=== PATIENT | male | born 1970 | race Caucasian/White ===

== ENCOUNTER 2016-10-23 18:08 | Observation (INO) | payer SELFPAY ==
[~2016-10-23] VITALS: Ht 182.9 cm; Wt 93.2 kg
[2016-10-23 18:12] VITALS: BP 114/61; PULSE 62; RESP 16; TEMP 98.7; O2SAT 96
[2016-10-23] MEDS ORDERED: SODIUM CHLOR 0.9% 1000 ML INJ 1,000 ML IV ONE (18:33)
--- NOTE | 2016-10-23 18:39 | PD ---
HPI Chief Complaint: Syncope/Near-Syncope Time Seen by Provider: 18:23 Travel History International Travel<30 days: No Contact w/Intl Traveler<30days: No Traveled to known affect area: No History of Present Illness HPI The patient is a 46-year-old male who presents emergency department for syncope. The patient states he was smoking a cigarette earlier today when he 7 became dizzy, he felt like he had blurry vision and subsequently had a syncopal episode. The patient thinks he lost consciousness for approximately 30 seconds. He does complain of abrasions to the nose, chin, and a laceration above the left eye. He also complains of abrasions to the extensor surface of the knees and hands bilaterally. The patient denies any history of syncope prior to the event. He denies any acute chest pain, shortness breath, palpitations, but does complain of mild nausea without any vomiting. The patient denies any history of arrhythmias or history of aortic stenosis. Symptoms are moderate, no known alleviating or exacerbating factors. The patient denies any chronic medical problems. [facility] Past Medical History Medical History: Denies Significant Hx Hx Anticoagulant Therapy: No Diabetes: No Past Surgical History Surgical History: No Previous Surgery Social History Tobacco Use: Yes Allergies-Medications (Allergen,Severity, Reaction): Coded Allergies: No Known Allergies (Unverified , 10/23/16) Reported Meds & Prescriptions Reported Meds & Active Scripts Active No Active Prescriptions or Reported Medications Review of Systems Except as stated in HPI: all other systems reviewed are Neg HENT: Positive: Lightheadedness Cardiovascular: Positive: Syncope, No: Chest Pain or Discomfort, Palpitations , Irregular Rhythm, Tachycardia, Diaphoresis Respiratory: No: Shortness of Breath Gastrointestinal: Positive: Nausea, No: Vomiting Musculoskeletal: No: Weakness Neurologic: Positive: Syncope, Headache, No: Change in Mentation, Paresthesia , Sensory Disturbance Physical Exam Narrative GENERAL: Awake, alert, pleasant 46-year-old male who appears his stated age and is in no acute respiratory distress. SKIN: Abrasions to the knees bilaterally as well as extensor surface of the hands bilaterally. Abrasions noted to the nose, upper lip, and chin. 2 cm laceration transverse, within the left eyebrow. HEAD: Abrasions to the face and forehead noted.. EYES: Pupils equal and round. Pupils are 3 mm bilateral and reactive. EOMs are intact. ENT: No nasal bleeding or discharge. Dry blood in the posterior pharynx. NECK: Trachea midline. No JVD. No tenderness of the cervical vertebrae. CARDIOVASCULAR: Regular rate and rhythm. No murmur appreciated. RESPIRATORY: No accessory muscle use. Clear to auscultation. Breath sounds equal bilaterally. GASTROINTESTINAL: Abdomen soft, non-tender, nondistended. No rebound tenderness. Back: No tenderness over the thoracic or lumbar vertebrae. MUSCULOSKELETAL: No obvious deformities. No clubbing. No cyanosis. No edema. NEUROLOGICAL: Awake and alert. No obvious cranial nerve deficits. Motor grossly within normal limits. Normal speech. PSYCHIATRIC: Appropriate mood and affect; insight and judgment normal. Data Data Last Documented VS Vital Signs Date Time Temp Pulse Resp B/P Pulse Ox O2 Delivery O2 Flow Rate FiO2 10/23/16 19:49 66 16 108/61 70 16 112/69 79 16 117/70 10/23/16 19:30 98 10/23/16 19:06 Room Air 10/23/16 18:12 98.7 Orders Electrocardiogram (10/23/16 18:33) Complete Blood Count With Diff (10/23/16 18:33) Comprehensive Metabolic Panel (10/23/16 18:33) Magnesium (Mg) (10/23/16 18:33) Ckmb (Isoenzyme) Profile (10/23/16 18:33) Troponin I (10/23/16 18:33) Chest, Single Ap (10/23/16 18:33) Ct Brain W/O Iv Contrast(Rout) (10/23/16 18:33) Ct Cerv Spine W/O Contrast (10/23/16 18:33) Ecg Monitoring (10/23/16 18:33) Iv Access Insert/Monitor (10/23/16 18:33) Oximetry (10/23/16 18:33) Sodium Chloride 0.9% Flush (Ns Flush) (10/23/16 18:45) Sodium Chlor 0.9% 1000 Ml Inj (Ns 1000 M (10/23/16 18:33) Orthostatic Vital Signs (10/23/16 18:33) Ct Facial Bones W/O Iv Cont (10/23/16 ) Tetanus/Diphtheria Tox Adult (Tetanus/Di (10/23/16 18:45) Wound Care (10/23/16 18:33) CKMB (10/23/16 18:45) CKMB% (10/23/16 18:45) Lidocai-Epi 1%-1:100,000 Inj (Xylocaine- (10/23/16 19:30) Admit Order (Ed Use Only) (10/23/16 20:28) Labs Laboratory Tests Test 10/23/16 18:45 White Blood Count 15.6 TH/MM3 Red Blood Count 5.50 MIL/MM3 Hemoglobin 16.4 GM/DL Hematocrit 48.3 % Mean Corpuscular Volume 87.8 FL Mean Corpuscular Hemoglobin 29.8 PG Mean Corpuscular Hemoglobin 33.9 % Concent Red Cell Distribution Width 12.6 % Platelet Count 227 TH/MM3 Mean Platelet Volume 8.0 FL Neutrophils (%) (Auto) 84.0 % Lymphocytes (%) (Auto) 7.3 % Monocytes (%) (Auto) 5.0 % Eosinophils (%) (Auto) 0.2 % Basophils (%) (Auto) 3.5 % Neutrophils # (Auto) 13.2 TH/MM3 Lymphocytes # (Auto) 1.1 TH/MM3 Monocytes # (Auto) 0.8 TH/MM3 Eosinophils # (Auto) 0.0 TH/MM3 Basophils # (Auto) 0.5 TH/MM3 CBC Comment DIFF FINAL Differential Comment Sodium Level 140 MEQ/L Potassium Level 3.8 MEQ/L Chloride Level 103 MEQ/L Carbon Dioxide Level 28.7 MEQ/L Anion Gap 8 MEQ/L Blood Urea Nitrogen 22 MG/DL Creatinine 1.30 MG/DL Estimat Glomerular Filtration 60 ML/MIN Rate Random Glucose 140 MG/DL Calcium Level 8.9 MG/DL Magnesium Level 2.2 MG/DL Total Bilirubin 0.4 MG/DL Aspartate Amino Transf 13 U/L (AST/SGOT) Alanine Aminotransferase 21 U/L (ALT/SGPT) Alkaline Phosphatase 68 U/L Total Creatine Kinase 195 U/L Creatine Kinase MB 4.7 NG/ML Troponin I LESS THAN 0.02 NG/ML Total Protein 7.6 GM/DL Albumin 4.1 GM/DL MDM Medical Decision Making Medical Screen Exam Complete: Yes Emergency Medical Condition: Yes Medical Record Reviewed: Yes Interpretation(s) EKG reveals sinus bradycardia with a rate of 59. No evidence of WPW or Brugada syndrome. Last Impressions Chest X-Ray 10/23/161832 Signed Impressions: Service Date/Time: Sunday, October 23, 2016 18:36 - CONCLUSION: No acute disease. Js Rust MD Laboratory Tests Test 10/23/16 18:45 White Blood Count 15.6 TH/MM3 Red Blood Count 5.50 MIL/MM3 Hemoglobin 16.4 GM/DL Hematocrit 48.3 % Mean Corpuscular Volume 87.8 FL Mean Corpuscular Hemoglobin 29.8 PG Mean Corpuscular Hemoglobin 33.9 % Concent Red Cell Distribution Width 12.6 % Platelet Count 227 TH/MM3 Mean Platelet Volume 8.0 FL Neutrophils (%) (Auto) 84.0 % Lymphocytes (%) (Auto) 7.3 % Monocytes (%) (Auto) 5.0 % Eosinophils (%) (Auto) 0.2 % Basophils (%) (Auto) 3.5 % Neutrophils # (Auto) 13.2 TH/MM3 Lymphocytes # (Auto) 1.1 TH/MM3 Monocytes # (Auto) 0.8 TH/MM3 Eosinophils # (Auto) 0.0 TH/MM3 Basophils # (Auto) 0.5 TH/MM3 CBC Comment DIFF FINAL Differential Comment Sodium Level 140 MEQ/L Potassium Level 3.8 MEQ/L Chloride Level 103 MEQ/L Carbon Dioxide Level 28.7 MEQ/L Anion Gap 8 MEQ/L Blood Urea Nitrogen 22 MG/DL Creatinine 1.30 MG/DL Estimat Glomerular Filtration 60 ML/MIN Rate Random Glucose 140 MG/DL Calcium Level 8.9 MG/DL Magnesium Level 2.2 MG/DL Total Bilirubin 0.4 MG/DL Aspartate Amino Transf 13 U/L (AST/SGOT) Alanine Aminotransferase 21 U/L (ALT/SGPT) Alkaline Phosphatase 68 U/L Total Creatine Kinase 195 U/L Creatine Kinase MB 4.7 NG/ML Troponin I LESS THAN 0.02 NG/ML Total Protein 7.6 GM/DL Albumin 4.1 GM/DL Last Impressions Head CT 10/23/161832 Signed Impressions: Service Date/Time: Sunday, October 23, 2016 19:07 - CONCLUSION: 1. No acute intracranial abnormalities. Left frontal scalp laceration. Js Rust MD Chest X-Ray 10/23/161832 Signed Impressions: Service Date/Time: Sunday, October 23, 2016 18:36 - CONCLUSION: No acute disease. Js Rust MD Cervical Spine CT 10/23/16 1833 Signed Impressions: Service Date/Time: Sunday, October 23, 2016 19:07 - CONCLUSION: Normal examination. Js Rust MD Maxillofacial CT 10/23/16 0000 Signed Impressions: Service Date/Time: Sunday, October 23, 2016 19:07 - CONCLUSION: 1. No facial bone fractures. Left frontal scalp laceration. Js Rust MD Differential Diagnosis Differential diagnosis includes syncope, aortic stenosis, vasovagal syncope, neurocardiogenic syncope, arrhythmia, intracranial hemorrhage, pulmonary embolism, which led abnormality. Narrative Course IV was established, labs are drawn and sent, and the patient was placed on cardiac telemetry monitoring and continuous pulse oximetry monitoring. EKG was ordered and interpreted. CT the brain, cervical spine, and facial bones was ordered. The patient was administered IV fluids and orthostatic vital signs were obtained. Orthostatic vital signs were obtained, they were unremarkable, however, the patient did have dizziness with sitting upright and standing. CT the brain was negative. Laboratory evaluation is unremarkable. EKG revealed sinus bradycardia but no evidence of WPW or Brugada syndrome. However, patient has obvious syncopal episode with injuries, abrasion injuries to the face, hands , knees. Therefore, patient will be 23 hour observation for telemetry monitoring and echocardiogram. The patient does not currently have a primary physician, therefore, the on-call medical service was paged for 23 hour observation. The patient's laceration was repaired by the physician assistant men's soccer coach, Donnie Myles PA-C. Please refer to the procedure note. CT the brain, facial bones, cervical spine is negative for fracture, does reveal left frontal scalp laceration. The patient will be 23 hour observation. Physician Communication Physician Communication [facility] were paged for 23 hour observation. I discussed the patient with Dr. Shields who agrees with 23 hour observation. Diagnosis Primary Impression: Syncope Qualified Code: R55 - Syncope, unspecified syncope type Additional Impression: Laceration of face Qualified Code: S01.81XA - Laceration of face, initial encounter Admitting Information Admitting Physician Requests: Observation Scripts No Active Prescriptions or Reported Meds Condition: Stable Albaro Aranda MD Oct 23, 2016 18:39
[2016-10-23] MEDS ORDERED: SODIUM CHLORIDE 0.9% FLUSH 5 ML FLUSH IVF PRN (18:45)
[2016-10-23] MEDS ORDERED: TETANUS/DIPHTHERIA TOXOID ADULT 0.5 ML VIAL IM ONE (18:45)
[2016-10-23 19:02] LABS: AUTOMATED NEUTROPHIL # 13.2 TH/MM3 (1.8-7.7); BASOPHIL # 0.5 TH/MM3 (0-0.2); BASOPHIL % 3.5 % (0.0-2.0); EOSINOPHIL % 0.2 % (0.0-4.0); HEMATOCRIT 48.3 % (39.0-51.0); HEMO FLAGS DIFF FINAL; LYMPH % 7.3 % (9.0-44.0); LYMPHOCYTE # 1.1 TH/MM3 (1.0-4.8); MEAN CELL VOLUME 87.8 FL (80.0-100.0); MEAN CORPUSCULAR HEMOGLOBIN 29.8 PG (27.0-34.0); MEAN CORPUSCULAR HGB CONC 33.9 % (32.0-36.0); PLATELET COUNT 227 TH/MM3 (150-450); RED CELL DISTRIBUTION WIDTH 12.6 % (11.6-17.2); WHITE BLOOD COUNT 15.6 TH/MM3 (4.0-11.0)
--- NOTE | 2016-10-23 19:04 | RADHPO ---
EXAM DATE/TIME: 10/23/2016 18:36 [facility] COMPARISON: No previous studies available for comparison. INDICATIONS : Syncopal episode. Palpitaions. MEDICAL HISTORY : None. SURGICAL HISTORY : None. ENCOUNTER: Initial ACUITY: 1 day PAIN SCORE: 0/10 LOCATION: Bilateral chest FINDINGS: A single view of the chest demonstrates the lungs to be symmetrically aerated without evidence of mas s, infiltrate or effusion. The cardiomediastinal contours are unremarkable. Osseous structures are intact. CONCLUSION: No acute disease. Js Rust MD on October 23, 2016 at 19:03 Board Certified Radiologist. This report was verified electronically.
[2016-10-23 19:06] VITALS: BP 114/50; PULSE 87; RESP 16; O2SAT 99
[2016-10-23 19:09] LABS: CHLORIDE 103 MEQ/L (98-107); POTASSIUM 3.8 MEQ/L (3.5-5.1); SODIUM (NA) 140 MEQ/L (136-145)
[2016-10-23 19:13] LABS: ANION GAP 8 MEQ/L (5-15); BICARBONATE 28.7 MEQ/L (21.0-32.0); MAGNESIUM 2.2 MG/DL (1.5-2.5)
[2016-10-23 19:14] LABS: BLOOD UREA NITROGEN 22 MG/DL (7-18)
[2016-10-23 19:16] LABS: ALT (GPT) 21 U/L (12-78)
[2016-10-23 19:17] LABS: AST (GOT) 13 U/L (15-37); GLOMERULAR FILTRATION RATE 60 ML/MIN (>89)
[2016-10-23 19:18] LABS: TOTAL BILIRUBIN ADULT 0.4 MG/DL (0.2-1.0)
[2016-10-23 19:19] LABS: ALKALINE PHOSPHATASE 68 U/L (45-117); CREATINE KINASE 195 U/L (39-308)
[2016-10-23 19:30] VITALS: BP 119/66; PULSE 72; RESP 16; O2SAT 98
[2016-10-23] MEDS ORDERED: LIDOCAINE 1%/EPINEPHrine 1:100,000 SOLN 20 ML VIAL INFIL ONE (19:30)
[2016-10-23 19:31] LABS: CKMB 4.7 NG/ML (0.5-3.6)
--- NOTE | 2016-10-23 19:35 | RADHPO ---
EXAM DATE/TIME: 10/23/2016 19:07 [facility] COMPARISON: No previous studies available for comparison. INDICATIONS : Syncopal episode with loss of consciousness. Left frontal head trauma. RADIATION DOSE: 63.26 CTDIvol (mGy) MEDICAL HISTORY : None SURGICAL HISTORY : None. ENCOUNTER: Initial ACUITY: 1 day PAIN SCALE: 7/10 LOCATION: Left frontal TECHNIQUE: Multiple contiguous axial images were obtained of the head. Using automated exposure control and adj ustment of the mA and/or kV according to patient size, radiation dose was kept as low as reasonably a chievable to obtain optimal diagnostic quality images. FINDINGS: CEREBRUM: The ventricles are normal for age. No evidence of midline shift, mass lesion, hemorrhage or acute in farction. No extra-axial fluid collections are seen. POSTERIOR FOSSA: The cerebellum and brainstem are intact. The 4th ventricle is midline. The cerebellopontine angle i s unremarkable. EXTRACRANIAL: The visualized portion of the orbits is intact. SKULL: The calvaria is intact. No evidence of skull fracture. CONCLUSION: 1. No acute intracranial abnormalities. Left frontal scalp laceration. Js Rust MD on October 23, 2016 at 19:32 Board Certified Radiologist. This report was verified electronically.
[2016-10-23 19:49] VITALS: BP_SYST 108; BP_SYST 112; BP_SYST 117; BP_DIAS 61; BP_DIAS 69; BP_DIAS 70; RESP 16
--- NOTE | 2016-10-23 19:52 | PD ---
Physical Exam Date Seen by Provider: Oct 23, 2016 Time Seen by Provider: 19:51 Narrative 46-year-old male that presents to the ED for evaluation of laceration to the left forehead. I was also my attending to repair laceration. Please refer to his note. Data Data Last Documented VS Vital Signs Date Time Temp Pulse Resp B/P Pulse Ox O2 Delivery O2 Flow Rate FiO2 10/23/16 19:49 66 16 108/61 70 16 112/69 79 16 117/70 10/23/16 19:30 98 10/23/16 19:06 Room Air 10/23/16 18:12 98.7 Orders Electrocardiogram (10/23/16 18:33) Complete Blood Count With Diff (10/23/16 18:33) Comprehensive Metabolic Panel (10/23/16 18:33) Magnesium (Mg) (10/23/16 18:33) Ckmb (Isoenzyme) Profile (10/23/16 18:33) Troponin I (10/23/16 18:33) Chest, Single Ap (10/23/16 18:33) Ct Brain W/O Iv Contrast(Rout) (10/23/16 18:33) Ct Cerv Spine W/O Contrast (10/23/16 18:33) Ecg Monitoring (10/23/16 18:33) Iv Access Insert/Monitor (10/23/16 18:33) Oximetry (10/23/16 18:33) Sodium Chloride 0.9% Flush (Ns Flush) (10/23/16 18:45) Sodium Chlor 0.9% 1000 Ml Inj (Ns 1000 M (10/23/16 18:33) Orthostatic Vital Signs (10/23/16 18:33) Ct Facial Bones W/O Iv Cont (10/23/16 ) Tetanus/Diphtheria Tox Adult (Tetanus/Di (10/23/16 18:45) Wound Care (10/23/16 18:33) CKMB (10/23/16 18:45) CKMB% (10/23/16 18:45) Lidocai-Epi 1%-1:100,000 Inj (Xylocaine- (10/23/16 19:30) Labs Laboratory Tests Test 10/23/16 18:45 White Blood Count 15.6 TH/MM3 Red Blood Count 5.50 MIL/MM3 Hemoglobin 16.4 GM/DL Hematocrit 48.3 % Mean Corpuscular Volume 87.8 FL Mean Corpuscular Hemoglobin 29.8 PG Mean Corpuscular Hemoglobin 33.9 % Concent Red Cell Distribution Width 12.6 % Platelet Count 227 TH/MM3 Mean Platelet Volume 8.0 FL Neutrophils (%) (Auto) 84.0 % Lymphocytes (%) (Auto) 7.3 % Monocytes (%) (Auto) 5.0 % Eosinophils (%) (Auto) 0.2 % Basophils (%) (Auto) 3.5 % Neutrophils # (Auto) 13.2 TH/MM3 Lymphocytes # (Auto) 1.1 TH/MM3 Monocytes # (Auto) 0.8 TH/MM3 Eosinophils # (Auto) 0.0 TH/MM3 Basophils # (Auto) 0.5 TH/MM3 CBC Comment DIFF FINAL Differential Comment Sodium Level 140 MEQ/L Potassium Level 3.8 MEQ/L Chloride Level 103 MEQ/L Carbon Dioxide Level 28.7 MEQ/L Anion Gap 8 MEQ/L Blood Urea Nitrogen 22 MG/DL Creatinine 1.30 MG/DL Estimat Glomerular Filtration 60 ML/MIN Rate Random Glucose 140 MG/DL Calcium Level 8.9 MG/DL Magnesium Level 2.2 MG/DL Total Bilirubin 0.4 MG/DL Aspartate Amino Transf 13 U/L (AST/SGOT) Alanine Aminotransferase 21 U/L (ALT/SGPT) Alkaline Phosphatase 68 U/L Total Creatine Kinase 195 U/L Creatine Kinase MB 4.7 NG/ML Troponin I LESS THAN 0.02 NG/ML Total Protein 7.6 GM/DL Albumin 4.1 GM/DL [facility] Medical Record Reviewed: Yes Supervised Visit with NESTOR: No Procedures Procedure Narrative LACERATION LOCATION: Left eyebrow LENGTH: 1.5 cm NUMBER OF STITCHES/HOSSEIN: 5 sutures REPAIR: The area of the laceration was prepped with Betadine and sterilely draped. The laceration was infiltrated with 1% Xylocaine. The wound was copiously irrigated and explored without evidence of foreign body, tendon injury or neurovascular injury. The wound was closed using 5-0 Prolene. This was a 1 layer repair. A sterile dressing was applied. The patient was advised to keep the dressing clean and dry. Patient tolerated the procedure well. Scripts No Active Prescriptions or Reported Meds Condition: Donnie Foster Oct 23, 2016 19:52
--- NOTE | 2016-10-23 19:53 | RADHPO ---
EXAM DATE/TIME: 10/23/2016 19:07 [facility] COMPARISON: No previous studies available for comparison. INDICATIONS : Syncopal episode with loss of consciousness. Left sided neck trauma. RADIATION DOSE: 26.46 CTDIvol (mGy) MEDICAL HISTORY : None SURGICAL HISTORY : None. ENCOUNTER: Initial ACUITY: 1 day PAIN SCALE: 7/10 LOCATION: Left neck TECHNIQUE: Volumetric scanning of the cervical spine was performed. Multiplanar reconstructions in the sagittal, coronal and oblique axial planes were performed. Using automated exposure control and adjustment o f the mA and/or kV according to patient size, radiation dose was kept as low as reasonably achievable to obtain optimal diagnostic quality images. FINDINGS: VERTEBRAE: Normal vertebral body height. ALIGNMENT: No evidence of subluxation. C2-C3: The bony spinal canal is normal in size. No evidence of disc bulge or herniation. The neural forami na are bilaterally patent. C3-C4: The bony spinal canal is normal in size. No evidence of disc bulge or herniation. The neural forami na are bilaterally patent. C4-C5: The bony spinal canal is normal in size. No evidence of disc bulge or herniation. The neural forami na are bilaterally patent. C5-C6: The bony spinal canal is normal in size. No evidence of disc bulge or herniation. The neural forami na are bilaterally patent. C6-C7: The bony spinal canal is normal in size. No evidence of disc bulge or herniation. The neural forami na are bilaterally patent. C7-T1: The bony spinal canal is normal in size. No evidence of disc bulge or herniation. The neural forami na are bilaterally patent. CONCLUSION: Normal examination. Js Rust MD on October 23, 2016 at 19:49 Board Certified Radiologist. This report was verified electronically.
--- NOTE | 2016-10-23 19:55 | RADHPO ---
EXAM DATE/TIME: 10/23/2016 19:07 [facility] COMPARISON: No previous studies available for comparison. INDICATIONS : Syncopal episode with loss of consciousness. Left sided facial trauma. RADIATION DOSE: 25.54 CTDIvol (mGy) MEDICAL HISTORY : None SURGICAL HISTORY : None. ENCOUNTER: Initial ACUITY: 1 day PAIN SCORE: 7/10 LOCATION: Left facial TECHNIQUE: Volumetric scanning of the facial bones was performed. Using automated exposure control and adjustme nt of the mA and/or kV according to patient size, radiation dose was kept as low as reasonably achiev able to obtain optimal diagnostic quality images. FINDINGS: ORBITS: The orbital and infraorbital osseous structures are intact. The retroconal structures have a normal configuration. No radiopaque foreign bodies are seen. NASAL BONE: The nasal bone and maxillary spine are intact ZYGOMATIC ARCHES: Symmetric without evidence of fracture. SINUSES: The maxillary, ethmoid and frontal sinuses are intact. No air-fluid levels seen. NASAL CAVITY: The nasal septum is intact and midline. The lacrimal ducts are intact. SOFT TISSUES: No radiopaque foreign bodies seen. No soft-tissue swelling is seen. INTRACRANIAL: No intracranial air seen. CRIBIFORM PLATE: Grossly intact. CONCLUSION: 1. No facial bone fractures. Left frontal scalp laceration. Js Rust MD on October 23, 2016 at 19:52 Board Certified Radiologist. This report was verified electronically.
[2016-10-23] MEDS ORDERED: NALOXONE HCL 0.4 MG/ML AMP IV PRN (20:30)
[2016-10-23] MEDS ORDERED: SODIUM CHLORIDE 0.9% FLUSH 5 ML FLUSH FLUSH PRN (20:30)
[2016-10-23 21:00] VITALS: BP 120/66; PULSE 70; RESP 16; O2SAT 99
[2016-10-23] MEDS: SODIUM CHLORIDE 0.9% FLUSH 5 ML FLUSH FLUSH SCH (21:00)
--- NOTE | 2016-10-23 22:52 | RADHPO ---
EXAM DATE/TIME: 10/23/2016 22:08 [facility] COMPARISON: No previous studies available for comparison. INDICATIONS : Syncope. MEDICAL HISTORY : Left ear hearing loss. SURGICAL HISTORY : None. ENCOUNTER: Initial ACUITY: 1 day PAIN SCORE: 0/10 LOCATION: Bilateral neck PEAK SYSTOLIC VELOCITIES (cm/sec): ICA/CCA RATIO: Right: 0.8 Left: 0.8 ICA: Right: 132 Left: 125 CCA: Right: 169 Left: 157 ECA: Right: 158 Left: 159 VERTEBRAL: Right: 73 antegrade Left: 88 antegrade Elevated flow velocities and ICA/CCA ratios have been found to correlate with increased degrees of vessel stenosis, calculated as percentage of diameter relative to a normal segment of distal ICA/CCA FINDINGS: RIGHT CAROTID: No significant stenosis is visualized. The waveforms are within normal limits. LEFT CAROTID: No significant stenosis is visualized. The waveforms are within normal limits. VERTEBRAL ARTERIES: Antegrade flow is seen in both vertebral arteries. MISCELLANEOUS: None. CONCLUSION: 1. Mild visible plaque at the carotid bifurcations bilaterally. No hemodynamically significant stenos is. Vertebral artery flow antegrade bilaterally. Js Rust MD on October 23, 2016 at 22:47 Board Certified Radiologist. This report was verified electronically.
[2016-10-23 23:25] VITALS: PULSE 70
[2016-10-24] MEDS: ACETAMINOPHEN/HYDROcodone 325 MG/5 MG TAB PO PRN ×2 (00:07→06:21)
[2016-10-24 00:28] VITALS: BP 111/68; PULSE 58; RESP 16; TEMP 97.8; O2SAT 97
[2016-10-24 00:45] LABS: CREATINE KINASE 192 U/L (39-308)
[2016-10-24 04:00] VITALS: BP 116/77; PULSE 66; RESP 16; TEMP 98.6; O2SAT 98
[2016-10-24 07:02] LABS: AUTOMATED NEUTROPHIL # 8.2 TH/MM3 (1.8-7.7); BASOPHIL # 0.2 TH/MM3 (0-0.2); BASOPHIL % 1.8 % (0.0-2.0); EOSINOPHIL # 0.1 TH/MM3 (0-0.4); EOSINOPHIL % 0.7 % (0.0-4.0); HEMATOCRIT 44.5 % (39.0-51.0); LYMPH % 14.1 % (9.0-44.0); LYMPHOCYTE # 1.5 TH/MM3 (1.0-4.8); MEAN CELL VOLUME 88.4 FL (80.0-100.0); MONO % 6.3 % (0.0-8.0); NEUT % 77.1 % (16.0-70.0); PLATELET COUNT 199 TH/MM3 (150-450); RED BLOOD COUNT 5.04 MIL/MM3 (4.50-5.90); RED CELL DISTRIBUTION WIDTH 13.3 % (11.6-17.2); WHITE BLOOD COUNT 10.7 TH/MM3 (4.0-11.0)
[2016-10-24 07:04] LABS: HEMO FLAGS DIFF FINAL
[2016-10-24 07:10] LABS: CHLORIDE 106 MEQ/L (98-107); POTASSIUM 4.1 MEQ/L (3.5-5.1); SODIUM (NA) 141 MEQ/L (136-145)
[2016-10-24 07:18] LABS: ANION GAP 7 MEQ/L (5-15); BICARBONATE 27.7 MEQ/L (21.0-32.0); BLOOD UREA NITROGEN 19 MG/DL (7-18)
[2016-10-24 07:22] LABS: GLOMERULAR FILTRATION RATE 81 ML/MIN (>89)
[2016-10-24 07:25] LABS: CREATINE KINASE 219 U/L (39-308)
--- NOTE | 2016-10-24 07:41 | HHI.HP ---
[facility] Primary Care Physician No Primary Care Physician Admission Diagnosis syncope, laceration face repaired Diagnoses: (1) Syncope Diagnosis: Principal (2) Laceration of face Diagnosis: Principal Chief Complaint: Syncope Travel History International Travel<30 Days: No Contact w/Intl Traveler <30 Da: No Traveled to Known Affected Are: No History of Present Illness 46-year-old male with no chronic medical illnesses who presented to the hospital because of syncopal episode. Patient states that he is walking for several miles from [facility] up to [place]. He had a friend drive him back down to [place]. At that time patient smoked a cigarette and subsequently passed out. He states that he got lightheaded and dizzy his vision was blurred and then the next thing he remembers is waking up on the ground. He thinks that he may have been out approximately 30 seconds. He denies any previous history of syncope. Patient states that all day yesterday he only drank 12 ounces of water. He denied any headache, difficulty ambulation , unilateral weakness, difficulty speaking, difficulty eating, chest pain, shortness of breath, dyspnea. Patient had full radiological workup done emergency department without any acute abnormalities. EKG was reviewed and indicated sinus bradycardia heart rate 59. Patient was recommended observation for further evaluation and management. Review of Systems Constitutional: COMPLAINS OF: Dizziness, DENIES: Diaphoretic episodes, Fatigue , Fever, Weight gain, Weight loss, Chills, Change in appetite, Night Sweats Eyes: COMPLAINS OF: Blurred vision, DENIES: Diplopia, Eye inflammation, Eye pain, Vision loss, Double Vision Ears, nose, mouth, throat: COMPLAINS OF: Hearing loss, DENIES: Vertigo, Nasal discharge, Throat pain, Ear Pain, Running Nose, Sinus Pain Respiratory: DENIES: Apneas, Cough, Snoring, Wheezing, Hemoptysis, Sputum production, Shortness of breath Cardiovascular: COMPLAINS OF: Syncope, DENIES: Chest pain, Palpitations, Dyspnea on Exertion, Lower Extremity Edema, Orthopnea Gastrointestinal: DENIES: Abdominal pain, Black stools, Bloody stools, Constipation, Diarrhea, Nausea, Vomiting, Difficulty Swallowing, Anorexia Psychiatric: COMPLAINS OF: Depression, DENIES: Anxiety, Confusion, Mood changes Past Family Social History Past Medical History No chronic medical illnesses Past Surgical History No previous surgeries Reported Medications No home medications Allergies: Coded Allergies: No Known Allergies (Unverified , 10/23/16) Family History Reviewed and unremarkable Social History Patient smokes about half a pack a cigarettes a day since he was 16 years old. Trace alcohol occasionally. Smokes marijuana occasionally Physical Exam Vital Signs Vital Signs Date Time Temp Pulse Resp B/P Pulse Ox O2 Delivery O2 Flow Rate FiO2 10/24/16 04:00 98.6 66 16 116/77 98 10/24/16 00:28 97.8 58 16 111/68 97 10/23/16 23:25 70 10/23/16 21:00 70 16 120/66 99 10/23/16 19:49 66 16 108/61 70 16 112/69 79 16 117/70 10/23/16 19:30 72 16 119/66 98 10/23/16 19:06 87 16 114/50 99 Room Air 10/23/16 18:29 70 16 98 Room Air 10/23/16 18:12 98.7 62 16 114/61 96 Physical Exam GENERAL: Well-developed, well-nourished, in no acute distress. alert and orientated HEENT: Head is normocephalic without any lesions or masses noted. Facial features are symmetric. Eyes: Pupils equal round reactive to light. Extraocular muscles are intact. Conjunctivae were clear. Oropharyngeal: Pharynx without any erythema edema. Tongue is midline without deviation. Buccal mucosa is moist without any masses or lesions. Laceration noted left eyebrow which has been repaired NECK: Supple without any masses. Trachea midline no deviation. No JVD, no bruits are appreciated CARDIAC: Regular rhythm, regular rate. S1/S2 are heard. No murmurs gallops or rubs. LUNGS: Clear to auscultation bilaterally. No wheeze, rhonchi or rales. No use of accessory muscles on inspiration or expiration. ABDOMEN: Soft, nontender. Nondistended. Bowel sounds heard in all 4 quadrants. No organomegaly or masses. Negative rebound, negative guarding EXTREMITIES: No edema, pulses are equal bilaterally. No cyanosis or clubbing NEUROLOGY: Mood and affect appear appropriate. Cranial nerves II through XII grossly intact. Muscle strength 5/5 in upper and lower extremities bilaterally. Deep tendon reflexes are 2+ in upper and lower extremities bilaterally. Laboratory Laboratory Tests Test 10/23/16 10/24/16 10/24/16 18:45 00:10 06:47 White Blood Count 15.6 10.7 Red Blood Count 5.50 5.04 Hemoglobin 16.4 15.1 Hematocrit 48.3 44.5 Mean Corpuscular Volume 87.8 88.4 Mean Corpuscular Hemoglobin 29.8 30.0 Mean Corpuscular Hemoglobin 33.9 34.0 Concent Red Cell Distribution Width 12.6 13.3 Platelet Count 227 199 Mean Platelet Volume 8.0 8.1 Neutrophils (%) (Auto) 84.0 77.1 Lymphocytes (%) (Auto) 7.3 14.1 Monocytes (%) (Auto) 5.0 6.3 Eosinophils (%) (Auto) 0.2 0.7 Basophils (%) (Auto) 3.5 1.8 Neutrophils # (Auto) 13.2 8.2 Lymphocytes # (Auto) 1.1 1.5 Monocytes # (Auto) 0.8 0.7 Eosinophils # (Auto) 0.0 0.1 Basophils # (Auto) 0.5 0.2 CBC Comment DIFF FINAL DIFF FINAL Differential Comment Sodium Level 140 141 Potassium Level 3.8 4.1 Chloride Level 103 106 Carbon Dioxide Level 28.7 27.7 Anion Gap 8 7 Blood Urea Nitrogen 22 19 Creatinine 1.30 1.00 Estimat Glomerular Filtration 60 81 Rate Random Glucose 140 85 Calcium Level 8.9 8.9 Magnesium Level 2.2 Total Bilirubin 0.4 Aspartate Amino Transf 13 (AST/SGOT) Alanine Aminotransferase 21 (ALT/SGPT) Alkaline Phosphatase 68 Total Creatine Kinase 195 192 219 Creatine Kinase MB 4.7 Troponin I LESS THAN 0.02 LESS THAN 0.02 LESS THAN 0.02 Total Protein 7.6 Albumin 4.1 Result Diagram: 10/24/1647 10/24/16646 Imaging Last Impressions Head CT 10/23/161832 Signed Impressions: Service Date/Time: Sunday, October 23, 2016 19:07 - CONCLUSION: 1. No acute intracranial abnormalities. Left frontal scalp laceration. Js Rust MD Chest X-Ray 10/23/161832 Signed Impressions: Service Date/Time: Sunday, October 23, 2016 18:36 - CONCLUSION: No acute disease. Js Rust MD Cervical Spine CT 10/23/16 1833 Signed Impressions: Service Date/Time: Sunday, October 23, 2016 19:07 - CONCLUSION: Normal examination. Js Rust MD Maxillofacial CT 10/23/16 0000 Signed Impressions: Service Date/Time: Sunday, October 23, 2016 19:07 - CONCLUSION: 1. No facial bone fractures. Left frontal scalp laceration. Js Rust MD Carotid Artery Ultrasound 10/23/16 0000 Signed Impressions: Service Date/Time: Sunday, October 23, 2016 22:08 - CONCLUSION: 1. Mild visible plaque at the carotid bifurcations bilaterally. No hemodynamically significant stenosis. Vertebral artery flow antegrade bilaterally. Js Rust MD Assessment and Plan Assessment and Plan Syncopal episode with closed head injury: Patient walking several miles, minimal fluid intake and had single episode while smoking a cigarette, could be secondary to nicotine effect, mild dehydration, bradycardia. Radiological studies to include CT of the head, carotid ultrasound, maxillofacial CT, cervical spine CT were unremarkable for any acute abnormality. Orthostatic vitals were performed which were unremarkable. Patient was given a liter of normal saline. Reviewed telemetry which did not indicate any arrhythmia, does have episodes of bradycardia in the high 50s. Echocardiogram indicate EF 60-65% normal systolic function, Mitral valve: Mild regurgitation, Right ventricle: Systolic pressure was increased. Tricuspid valve: Mild regurgitation. Pulmonary arteries: PA peak pressure: 50mm Hg Mild renal insufficiency: Laboratory studies do indicate some heme concentration, consistent with mild dehydration. Patient has received 1 L of fluid with improvement of renal functions Left brow laceration: Laceration was repaired with sutures by ER physician educational/development assistant. F/u with PCP or at ED in 5 days for suture removal. Tobacco use: Patient counseled on cessation DVT prevention: Low risk, early ambulation Written by Radu Bowie PA-C, acting as scribe for Dr. Tucker on 10/24/16 at 1305. The documentation accurately reflects the work and decisions performed face-to- face by Dr. Tucker on 10/24/16 at 1305. Discharge disposition Discharge home in stable condition Activity: Ad alan. Diet: Regular diet Medications per medication reconciliation Follow-up primary medical doctor in one week Problem Qualifiers (1) Syncope: Qualified Code: R55 - Syncope, unspecified syncope type (2) Laceration of face: Qualified Code: S01.81XA - Laceration of face, initial encounter Radu Bowie Oct 24, 2016 07:41 Felicitas Tucker MD Oct 24, 2016 14:03
[2016-10-24] MEDS: SODIUM CHLORIDE 0.9% FLUSH 5 ML FLUSH FLUSH SCH (08:42)
[2016-10-24] MEDS ORDERED: PNEUMOCOCCAL POLYVALENT INJ 25 MCG/0.5 ML SYR IM ONE (09:00)
[2016-10-24] MEDS ORDERED: INFLUENZA VIRUS VACCINE (QUADRIVALENT) 0.5 ML SYR IM ONE (09:00)
[2016-10-24 09:10] VITALS: BP 102/61; PULSE 69; RESP 17; TEMP 96.9; O2SAT 96
[2016-10-24 12:51] VITALS: BP 118/66; PULSE 62; RESP 15; TEMP 97.6; O2SAT 98
--- NOTE | 2016-10-24 12:52 | EC ---
Study Study Date:10/24/2016 STUDY CONCLUSIONS SUMMARY - Left ventricle: The cavity size was normal. Wall thickness was normal. Systolic function was normal. The estimated ejection fraction was in the range of 60% to 65%. Wall motion was normal; there were no regional wall motion abnormalities. - Mitral valve: Mild regurgitation. - Right ventricle: Systolic pressure was increased. - Tricuspid valve: Mild regurgitation. - Pulmonary arteries: PA peak pressure: 50mm Hg (S). If LV function is below 40, please consider prescribing an ACEI or ARB or document rationale for non-use. PROCEDURE DATA STUDY STATUS: Elective. Procedure: Transthoracic echocardiography. Image quality was good. Scanning was performed from the parasternal, apical, and subcostal acoustic windows. Study completion: The patient tolerated the procedure well. Transthoracic echocardiography. M-mode, complete 2D, complete spectral Doppler, and color Doppler. Patient status: Inpatient. CARDIAC ANATOMY LEFT VENTRICLE: The cavity size was normal. Wall thickness was normal. Systolic function was normal. The estimated ejection fraction was in the range of 60% to 65%. Wall motion was normal; there were no regional wall motion abnormalities. AORTIC VALVE: Trileaflet; normal thickness leaflets. Doppler: Transvalvular velocity was within the normal range. There was no stenosis. No regurgitation. AORTA: Aortic root: The aortic root was normal in size. MITRAL VALVE: Structurally normal valve. Doppler: Transvalvular velocity was within the normal range. There was no evidence for stenosis. Mild regurgitation. LEFT ATRIUM: The atrium was at the upper limits of normal in size. RIGHT VENTRICLE: The cavity size was normal. Wall thickness was normal. Systolic pressure was increased. PULMONIC VALVE: Doppler: Transvalvular velocity was within the normal range. There was no evidence for stenosis. No regurgitation. TRICUSPID VALVE: Structurally normal valve. Doppler: Transvalvular velocity was within the normal range. Mild regurgitation. PULMONARY ARTERY: The main pulmonary artery was normal-sized. Systolic pressure was within the normal range. RIGHT ATRIUM: The atrium was normal in size. PERICARDIUM: There was no pericardial effusion. SYSTEMIC VEINS: Inferior vena cava: The vessel was normal in size. BASIC MEASUREMENTS ADULT NORMAL Left ventricle LV internal dimension, ED, chordal level, 50.1 mm 43-52 PLAX LV internal dimension, ES, chordal level, 33 mm 23-38 PLAX Fractional shortening, chordal level, PLAX 34 % >29 LV posterior wall thickness, ED 10.8 mm IVS/LVPW ratio, ED 0.94 <1.3 Ventricular septum Septal thickness, ED 10.2 mm Aortic valve Leaflet separation 19 mm 15-26 Right ventricle RV internal dimension, ED, PLAX 27.6 mm 19-38 BASIC MEASUREMENTS ADULT NORMAL Aortic valve Leaflet separation 19 mm 15-26 Aorta Root diameter, ED 32 mm 20-37 Left atrium Anterior-posterior dimension, ES *41 mm 19-40 LA/aortic root ratio 1.28 DOPPLER MEASUREMENTS ADULT NORMAL Main pulmonary artery Pressure, S *50 mm Hg =30 Tricuspid valve Regurgitant peak velocity 318 cm/s Peak RV-RA gradient, S 40 mm Hg Maximal regurgitant velocity 318 cm/s Systemic veins Estimated CVP 10 mm Hg Right ventricle RV pressure, S *50 mm Hg <30 LEGEND: Mean values are shown as u=mean value. Asterisk (*) jack values outside specified normal range. Prepared and signed by Chris Gagnon [id number]
--- NOTE | 2016-10-24 13:14 | HHI.DCPOC ---
Discharge Care Plan Diagnosis: (1) Syncope (2) Laceration of face Goals to Promote Your Health * To prevent worsening of your condition and complications * To maintain your health at the optimal level Directions to Meet Your Goals Take your medications as prescribed Follow your dietary instruction Follow activity as directed Keep your appointments as scheduled Take your immunizations and boosters as scheduled If your symptoms worsen call your PCP, if no PCP go to Urgent Care Center or Emergency Room Smoking is Dangerous to Your Health. Avoid second hand smoke Call the 24-hour hour crisis hotline for domestic abuse at Radu Bowie Oct 24, 2016 13:14
--- NOTE | 2016-10-24 14:26 | EKG ---
Date Performed: 10/24/2016 Time Performed: 00:18:04 PTAGE: 46 years EKG: Sinus bradycardia Compared to PREVIOUS TRACING , PACs no longer present, otherwise no significant change Normal ECG exc ept for rate PREVIOUS TRACIN10/23/2016 18.19 DOCTOR: Jake Trejo Interpretating Date/Time 10/24/2016 14:51:27
--- NOTE | 2016-10-24 14:26 | EKG ---
Date Performed: 10/23/2016 Time Performed: 18:19:36 PTAGE: 46 years EKG: Sinus bradycardia with one PAC Otherwise, within normal limits Normal ECG except for rate NO PREVIOUS TRACING DOCTOR: Jake Trejo Interpretating Date/Time 10/24/2016 14:50:09
--- NOTE | 2016-10-24 14:26 | EKG ---
Date Performed: 10/24/2016 Time Performed: 06:07:54 PTAGE: 46 years EKG: Sinus bradycardia Since PREVIOUS TRACING , no significant change noted Normal ECG except for rate PREVIOUS TRACIN 10/24/2016 00.18 DOCTOR: Jake Trejo Interpretating Date/Time 10/24/2016 14:52:14
== END 2016-10-24 14:56 | disposition home or self-care (01) ==
LOC: PHED 18:08 → PHEDA 20:29 → PH3A 23:14
PROVIDERS: ADMIT Family Medicine; ATTEND Family Medicine
DX: R55 Syncope and collapse (principal); S01.112A Laceration without foreign body of left eyelid and periocular area, initial encounter; E86.0 Dehydration; I07.1 Rheumatic tricuspid insufficiency; F12.90 Cannabis use, unspecified, uncomplicated; F17.210 Nicotine dependence, cigarettes, uncomplicated; Z23 Encounter for immunization
CPT/HCPCS: 12011; 70450; 70486; 71010; 72125; 80048; 80053; 82550; 82552; 83735; 84484; 85025; 90471; 90686; 90714; 90732; 93005; 93306; 93880; 96360; 99285; G0378; J7030; G0008; G0009; Q2038